=== PATIENT | female | born 1945 | race Caucasian/White ===

== ENCOUNTER → 2017-11-30 | Outpatient (CLI) | payer MEDICARE, OTHER ==
[~2017-11-30] MED LIST: CHOL10002; FURO40 PO; GLIP10; HYDACE5 PO; INSULANI; KRILL OIL500 MG PO; LORA2 PO; LOSA25; LOSHYD; Motion Sickness25 M1 PO; Norvasc2.5 MG PO; POTCHL20ER PO; PROG100; PYRI100 PO; TURMERIC500 M2 PO
[2017-11-30 11:30] LABS: Source, Urine Clean Catch
[2017-11-30 11:35] LABS: Appearance, Urine Clear (Clear); Bilirubin, Urine Neg (Neg); Blood, Urine Neg (Neg); Color, Urine Yellow (P-Yellow); Glucose Qualitative, Urine Neg (Normal); Ketones, Urine Neg (Neg); Leukocyte Esterase, Urine 1+ (Neg); Nitrite, Urine Neg (Neg); Protein, Urine Neg (Neg); Urobilinogen, Urine NORM (Normal)
[2017-11-30 11:49] LABS: Bacteria Not Seen /hpf; Red Blood Cells, Urine Not Seen /hpf (0-2); Squamous Epithelial Cells Rare /hpf (Few); White Blood Cells, Urine Rare /hpf (0-5)
== END | disposition home or self-care (01) ==
LOC: LAB EV 11:26
PROVIDERS: Nurse Practitioner Family
DX: R30.0 Dysuria (principal)
CPT/HCPCS: 81001; 87086

== ENCOUNTER 2017-12-05 15:50 | Emergency (ER) | payer MEDICARE, OTHER ==
[~2017-12-05] VITALS: Ht 160 cm; Wt 118.8 kg
[~2017-12-05 15:50] MED LIST changes: -CHOL10002; -FURO40 PO; -KRILL OIL500 MG PO; -Motion Sickness25 M1 PO; -Norvasc2.5 MG PO; -POTCHL20ER PO; -PYRI100 PO; -TURMERIC500 M2 PO
[2017-12-05] MEDS ORDERED: PYRI100 PO (16:06)
[2017-12-05] MEDS ORDERED: Norvasc2.5 MG PO (16:06)
[2017-12-05] MEDS ORDERED: KRILL OIL500 MG PO (16:07)
[2017-12-05] MEDS ORDERED: TURMERIC500 M2 PO (16:07)
[2017-12-05] MEDS ORDERED: CHOL10002 (16:07)
[2017-12-05] MEDS ORDERED: FURO40 PO (16:08)
[2017-12-05] MEDS ORDERED: POTCHL20ER PO (16:09)
[2017-12-05 17:29] LABS: BASOPHILS ABSOLUTE AUTO 0.03 K/mm3 (0.00-0.23); BASOPHILS PERCENT AUTO 0 % (0-2); EOSINOPHILS ABSOLUTE AUTO 0.13 K/mm3 (0.00-0.68); EOSINOPHILS PERCENT AUTO 2 % (0-6); Hematocrit 39.4 % (33.0-51.0); IMMATURE GRAN ABSOLUTE AUTO 0.03 K/mm3 (0.00-0.10); IMMATURE GRAN PERCENT AUTO 0 % (0-1); LYMPHOCYTES ABSOLUTE AUTO 1.94 K/mm3 (0.84-5.20); LYMPHOCYTES PERCENT AUTO 23 % (21-46); MONOCYTES ABSOLUTE AUTO 0.67 K/mm3 (0.16-1.47); MONOCYTES PERCENT AUTO 8 % (4-13); Mean Corpuscular HGB Conc 30.5 g/dL (31.5-36.5); Mean Corpuscular Volume 86 fL (80-100); Mean Platelet Volume 10.1 fL (9.1-12.4); NEUTROPHILS ABSOLUTE AUTO 5.73 K/mm3 (1.96-9.15); NEUTROPHILS PERCENT AUTO 67 % (41-73); Platelet Count 246 K/mm3 (150-400); RDW Coefficient Variation 16.8 % (11.7-14.2); Red Blood Cell Count 4.61 M/mm3 (3.80-5.20); White Blood Cell Count 8.53 K/mm3 (4.00-11.30)
[2017-12-05 17:43] LABS: Anion Gap 10 mmol/L (6-16); Blood Urea Nitrogen 23 mg/dL (8-24); Bun/Creatinine Ratio 25.8 (12.0-20.0); CO2, Blood 21 mmol/L (21-32); Calcium, Blood 8.3 mg/dL (8.5-10.1); Chloride, Blood 109 mmol/L (98-108); Creatinine, Blood 0.89 mg/dL (0.40-1.00); Glomerular Filtration Rate >60 (60-); Glucose, Blood 161 mg/dL (70-99); Potassium, Blood 4.1 mmol/L (3.5-5.5); Sodium, Blood 140 mmol/L (136-145)
[2017-12-05] MEDS ORDERED: Motion Sickness25 M1 PO (18:34)
== END 2017-12-05 18:47 | disposition home or self-care (01) ==
LOC: ER 15:50
PROVIDERS: Emergency Medicine
DX: H81.10 Benign paroxysmal vertigo, unspecified ear (principal); Z88.5 Allergy status to narcotic agent; Z79.899 Other long term (current) drug therapy; E11.9 Type 2 diabetes mellitus without complications
CPT/HCPCS: 70450; 80048; 85025; 93005; 93010; 99284

== ENCOUNTER → 2017-12-21 | Outpatient (CLI) | payer MEDICARE, OTHER ==
[~2017-12-21] MED LIST changes: +CHOL10002; +FURO40 PO; +KRILL OIL500 MG PO; +Motion Sickness25 M1 PO; +Norvasc2.5 MG PO; +POTCHL20ER PO; +PYRI100 PO; +TURMERIC500 M2 PO
== END ==
LOC: LAB EV 12:57
DX: R35.0 Frequency of micturition (principal)
CPT/HCPCS: 87086

== ENCOUNTER 2020-07-29 18:13 | Emergency (ER) | payer MEDICARE, OTHER ==
[~2020-07-29] VITALS: Ht 160 cm; Wt 127.0 kg
[~2020-07-29 18:13] MED LIST changes: -CHOL10002; +VITAMIN D31000 UNI1 PO
[2020-07-29 20:13] LABS: BASOPHILS ABSOLUTE AUTO 0.04 K/mm3 (0.00-0.23); BASOPHILS PERCENT AUTO 1 % (0-2); EOSINOPHILS PERCENT AUTO 1 % (0-6); Hematocrit 39.8 % (33.0-51.0); Hemoglobin 12.3 g/dL (11.5-16.0); IMMATURE GRAN ABSOLUTE AUTO 0.04 K/mm3 (0.00-0.10); IMMATURE GRAN PERCENT AUTO 1 % (0-1); LYMPHOCYTES ABSOLUTE AUTO 1.88 K/mm3 (0.84-5.20); LYMPHOCYTES PERCENT AUTO 26 % (21-46); MONOCYTES ABSOLUTE AUTO 0.46 K/mm3 (0.16-1.47); MONOCYTES PERCENT AUTO 6 % (4-13); Mean Corpuscular HGB 27.7 pg (26.0-34.0); Mean Corpuscular HGB Conc 30.9 g/dL (31.5-36.5); Mean Corpuscular Volume 90 fL (80-100); Mean Platelet Volume 10.2 fL (9.1-12.4); NEUTROPHILS PERCENT AUTO 65 % (41-73); Platelet Count 287 K/mm3 (150-400); RDW Coefficient Variation 15.9 % (11.7-14.2); RDW Standard Deviation 51.9 fL (35.1-46.3); Red Blood Cell Count 4.44 M/mm3 (3.80-5.20); White Blood Cell Count 7.22 K/mm3 (4.00-11.30)
[2020-07-29 20:29] LABS: Troponin I <0.015 ng/mL (0.000-0.040)
[2020-07-29 20:30] LABS: Alanine Aminotransfer (ALT/SGP 42 U/L (12-78); Albumin, Blood 3.2 g/dL (3.4-5.0); Albumin/Globulin Ratio 0.9 (0.8-1.8); Alk Phos 89 U/L (50-136); Anion Gap 9 mmol/L (6-16); Aspartate Aminotrans (AST/SGOT 39 U/L (12-37); Bilirubin, Total 0.3 mg/dL (0.1-1.0); Blood Urea Nitrogen 23 mg/dL (8-24); CO2, Blood 18 mmol/L (21-32); Calcium, Blood 8.5 mg/dL (8.5-10.1); Chloride, Blood 114 mmol/L (98-108); Creatinine, Blood 0.82 mg/dL (0.40-1.00); Globulin, Blood 3.7 g/dL (2.2-4.0); Glomerular Filtration Rate >60 (60-); Glucose, Blood 255 mg/dL (70-99); Potassium, Blood 4.3 mmol/L (3.5-5.5); Sodium, Blood 141 mmol/L (136-145); Total Protein, Blood 6.9 g/dL (6.4-8.2)
[2020-07-29] MEDS ORDERED: METO50ER PO (21:58)
[2020-07-29] MEDS ORDERED: LOSARTAN POTASS50 M1 PO (21:58)
[2020-07-29] MEDS ORDERED: MONT10T PO (21:58)
[2020-07-29] MEDS ORDERED: SPIRONOLACTONE25 MG PO (21:58)
[2020-07-29] MEDS ORDERED: AMLODIPINE BESYL5 MG PO (21:59)
[2020-07-29] MEDS ORDERED: Lasix20 MG PO (22:43)
[2020-07-29] MEDS ORDERED: MAGNESIUM OXID400 M1 PO (22:44)
[2020-07-29 23:16] LABS: International Normalized Ratio 0.96; Prothrombin Time Results 10.3 Sec (9.7-11.5)
== END 2020-07-29 22:58 | disposition home or self-care (01) ==
LOC: ER 18:13
PROVIDERS: Emergency Medicine; Nurse Practitioner Acute Care
DX: R07.9 Chest pain, unspecified (principal); R10.13 Epigastric pain; R11.0 Nausea; E11.9 Type 2 diabetes mellitus without complications; I10 Essential (primary) hypertension; Z88.5 Allergy status to narcotic agent; Z79.899 Other long term (current) drug therapy
CPT/HCPCS: 36415; 71046; 80053; 83605; 83690; 84484; 85025; 85610; 85730; 93005; 93010; 99285-25

== ENCOUNTER 2021-03-24 07:22 | Inpatient (IN) | payer MEDICARE, OTHER ==
[~2021-03-24] VITALS: Ht 160 cm; Wt 125.0 kg
[~2021-03-24 07:22] MED LIST changes: +AMLODIPINE BESYL5 MG PO; +LOSARTAN POTASS50 M1 PO; +Lasix20 MG PO; +MAGNESIUM OXID400 M1 PO; +METO50ER PO; +MONT10T PO; +SPIRONOLACTONE25 MG PO
[2021-03-24 07:59] LABS: BASOPHILS ABSOLUTE AUTO 0.04 K/mm3 (0.00-0.23); BASOPHILS PERCENT AUTO 0 % (0-2); EOSINOPHILS ABSOLUTE AUTO 0.24 K/mm3 (0.00-0.68); EOSINOPHILS PERCENT AUTO 3 % (0-6); Hematocrit 40.8 % (33.0-51.0); Hemoglobin 13.1 g/dL (11.5-16.0); IMMATURE GRAN ABSOLUTE AUTO 0.05 K/mm3 (0.00-0.10); IMMATURE GRAN PERCENT AUTO 1 % (0-1); LYMPHOCYTES ABSOLUTE AUTO 0.99 K/mm3 (0.84-5.20); LYMPHOCYTES PERCENT AUTO 10 % (21-46); MONOCYTES ABSOLUTE AUTO 0.53 K/mm3 (0.16-1.47); MONOCYTES PERCENT AUTO 6 % (4-13); Mean Corpuscular HGB 27.3 pg (26.0-34.0); Mean Corpuscular HGB Conc 32.1 g/dL (31.5-36.5); Mean Corpuscular Volume 85 fL (80-100); Mean Platelet Volume 9.8 fL (9.1-12.4); NEUTROPHILS ABSOLUTE AUTO 7.76 K/mm3 (1.96-9.15); NEUTROPHILS PERCENT AUTO 81 % (41-73); Platelet Count 232 K/mm3 (150-400); RDW Coefficient Variation 17.3 % (11.7-14.2); RDW Standard Deviation 54.3 fL (35.1-46.3); Red Blood Cell Count 4.79 M/mm3 (3.80-5.20); White Blood Cell Count 9.61 K/mm3 (4.00-11.30)
[2021-03-24 08:19] LABS: Alanine Aminotransfer (ALT/SGP 38 U/L (12-78); Albumin, Blood 3.3 g/dL (3.4-5.0); Albumin/Globulin Ratio 0.9 (0.8-1.8); Alk Phos 79 U/L (50-136); Anion Gap 6 mmol/L (6-16); Aspartate Aminotrans (AST/SGOT 25 U/L (12-37); Bilirubin, Total 0.4 mg/dL (0.1-1.0); Blood Urea Nitrogen 19 mg/dL (8-24); Bun/Creatinine Ratio 24.3 (12.0-20.0); CO2, Blood 27 mmol/L (21-32); Calcium, Blood 8.7 mg/dL (8.5-10.1); Chloride, Blood 99 mmol/L (98-108); Creatinine, Blood 0.78 mg/dL (0.40-1.00); Globulin, Blood 3.8 g/dL (2.2-4.0); Glomerular Filtration Rate >60 (60-); Glucose, Blood 210 mg/dL (70-99); Sodium, Blood 132 mmol/L (136-145); Total Protein, Blood 7.1 g/dL (6.4-8.2); Troponin I <0.015 ng/mL (0.000-0.040)
[2021-03-24] MEDS ORDERED: METOPROLOL SUCC25 MG PO (12:05)
--- NOTE | 2021-03-24 14:43 | NUR ---
Telephone report received from BASIM Jauregui. Anticipate that pt will arrive to PCU 6 shortly.
[2021-03-24] MEDS ORDERED: METO50ER PO (16:02)
[2021-03-24] MEDS ORDERED: METO25ER PO (16:04)
--- NOTE | 2021-03-24 17:06 | NUR ---
Pt arrived from ED, alert, oreinted, pleasantly conversant and without dyspnea on 3 l/min oxygen delivery via nasal cannula. She was able to walk into the bathroom unassisted except for the PCT pushing the IV pole for her. engine monitor tech reports that her rhythm is atrial fibrillation, 83-91 bpm at this time, while on the cardizem gtt at 10cc/hour. States she is having a headache, which she was given Tylenol for. Denies chest pain/dyspnea. vital signs stable. Pt states that she uses a cpap at home, and will ask her son to bring it in for her. Continuous oximetry set up as the pt has a history of sleep apnea.
[2021-03-25 03:56] LABS: BASOPHILS ABSOLUTE AUTO 0.05 K/mm3 (0.00-0.23); BASOPHILS PERCENT AUTO 1 % (0-2); EOSINOPHILS ABSOLUTE AUTO 0.34 K/mm3 (0.00-0.68); EOSINOPHILS PERCENT AUTO 5 % (0-6); Hematocrit 38.1 % (33.0-51.0); IMMATURE GRAN ABSOLUTE AUTO 0.03 K/mm3 (0.00-0.10); IMMATURE GRAN PERCENT AUTO 0 % (0-1); LYMPHOCYTES ABSOLUTE AUTO 1.74 K/mm3 (0.84-5.20); LYMPHOCYTES PERCENT AUTO 23 % (21-46); MONOCYTES PERCENT AUTO 8 % (4-13); Mean Corpuscular HGB Conc 31.5 g/dL (31.5-36.5); Mean Corpuscular Volume 86 fL (80-100); Mean Platelet Volume 10.2 fL (9.1-12.4); NEUTROPHILS ABSOLUTE AUTO 4.87 K/mm3 (1.96-9.15); NEUTROPHILS PERCENT AUTO 64 % (41-73); Platelet Count 222 K/mm3 (150-400); RDW Coefficient Variation 17.2 % (11.7-14.2); RDW Standard Deviation 54.3 fL (35.1-46.3); Red Blood Cell Count 4.44 M/mm3 (3.80-5.20); White Blood Cell Count 7.63 K/mm3 (4.00-11.30)
[2021-03-25 04:14] LABS: Anion Gap 3 mmol/L (6-16); Blood Urea Nitrogen 20 mg/dL (8-24); Bun/Creatinine Ratio 22.4 (12.0-20.0); CO2, Blood 29 mmol/L (21-32); Calcium, Blood 7.9 mg/dL (8.5-10.1); Chloride, Blood 105 mmol/L (98-108); Creatinine, Blood 0.89 mg/dL (0.40-1.00); Glomerular Filtration Rate >60 (60-); Glucose, Blood 152 mg/dL (70-99); Magnesium, Blood 1.9 mg/dL (1.6-2.4); Potassium, Blood 3.9 mmol/L (3.5-5.5); Sodium, Blood 137 mmol/L (136-145)
[2021-03-25 06:40] LABS: Phosphorus, Blood 3.5 mg/dL (2.5-4.9); Thyroid Stimulating Hormone 0.526 uIU/mL (0.360-4.800)
--- NOTE | 2021-03-25 07:53 | NUR ---
Dr. Max here at 0730 to see pt. She is still on cardizem gtt at 10 cc/10 mg/hour; atrial fibrillation by telemetry, rate 90 bpm. Still requiring oxygen at 2 l/min to keep spo2 90%. She is c/o headache, unrelieved by Tylenol. Second covid test sent to lab.
[2021-03-25 08:45] LABS: SARS-Cov-2 (COVID-19) PCR, MMC NEGATIVE (NEGATIVE)
--- NOTE | 2021-03-25 11:00 | NUR ---
cardizem gtt turned off. Heart rate 80-90, atrial fibrillation
--- NOTE | 2021-03-25 15:34 | NUR ---
PT WAS ASSISTED TO THE BATHROOM BY PATIENT FLOW PLASTIC PRODUCTION MACHINE SETTER BASIM AGUILAR. HEART RATE IS 130 DURING THE ACTIVITY, STILL ATRIAL FIBRILLATION, AND DECREASED BACK TO 88 BPM AFTER SHE IS FINISHED USING THE BATHROOM AND BACK IN BED.
--- NOTE | 2021-03-25 17:39 | NUR ---
noted heart rate has been slowly trending up over the past hour, while the pt was eating dinner in the recliner chair next to the bed. She is no longer needing oxygen, spo2 92 % on room air after being slowly weaned off of the oxygen at 2 l/min. She is having no dyspnea, and denies any chest discomfort or palpitations. Her heart rate is 100-120 at rest at this time. Evening metoprolol dose will be given at this time instead of at 2100. Blood pressure is stable.
--- NOTE | 2021-03-25 21:23 | NUR ---
THIS LN TOOKOVER PATIENT AT 1845, AO X 4, ABLE TO MAKE NEEDS KNOWN, STAND BY ASSIST WITH AMBULATION AND SET UP, CALL LIGHT WITHIN REACH, BLOOD PRESSURE ELEVATED, THROAT IS SORE, AND C/O RHINIITIS.
--- NOTE | 2021-03-26 06:38 | NUR ---
PATIENT HAS HIGH BLOOD PRESSURE THIS AM, 170/115 HR 82 ASYMPTOMATIC NO C/O OF PRESSURE, PAIN, SOB, PALPITATIONS, DIZZINESS, NAUSEA AND/OR MALAISE, WILL PASS OVER TO DAYSHIFT PATIENT HAS BEEN HAVING INCREASING BLOOD PRESSURES, STARTED BACK ON HER HOME MEDICATIONS YESTERDAY FOR PRESSURE CONTROL.
[2021-03-26 09:08] LABS: BASOPHILS ABSOLUTE AUTO 0.06 K/mm3 (0.00-0.23); BASOPHILS PERCENT AUTO 1 % (0-2); EOSINOPHILS ABSOLUTE AUTO 0.43 K/mm3 (0.00-0.68); EOSINOPHILS PERCENT AUTO 6 % (0-6); Hemoglobin 13.4 g/dL (11.5-16.0); IMMATURE GRAN ABSOLUTE AUTO 0.03 K/mm3 (0.00-0.10); IMMATURE GRAN PERCENT AUTO 0 % (0-1); LYMPHOCYTES ABSOLUTE AUTO 1.77 K/mm3 (0.84-5.20); LYMPHOCYTES PERCENT AUTO 26 % (21-46); MONOCYTES ABSOLUTE AUTO 0.52 K/mm3 (0.16-1.47); MONOCYTES PERCENT AUTO 8 % (4-13); Mean Corpuscular HGB Conc 31.2 g/dL (31.5-36.5); Mean Corpuscular Volume 87 fL (80-100); Mean Platelet Volume 10.1 fL (9.1-12.4); NEUTROPHILS ABSOLUTE AUTO 4.13 K/mm3 (1.96-9.15); NEUTROPHILS PERCENT AUTO 60 % (41-73); Platelet Count 246 K/mm3 (150-400); RDW Coefficient Variation 17.4 % (11.7-14.2); Red Blood Cell Count 4.97 M/mm3 (3.80-5.20); White Blood Cell Count 6.94 K/mm3 (4.00-11.30)
[2021-03-26 09:17] LABS: Anion Gap 5 mmol/L (6-16); Blood Urea Nitrogen 16 mg/dL (8-24); Bun/Creatinine Ratio 19.4 (12.0-20.0); CO2, Blood 27 mmol/L (21-32); Calcium, Blood 8.3 mg/dL (8.5-10.1); Chloride, Blood 104 mmol/L (98-108); Creatinine, Blood 0.82 mg/dL (0.40-1.00); Glomerular Filtration Rate >60 (60-); Glucose, Blood 280 mg/dL (70-99); Potassium, Blood 4.3 mmol/L (3.5-5.5); Sodium, Blood 136 mmol/L (136-145)
--- NOTE | 2021-03-26 18:00 | NUR ---
Update 03/26/21 1758: Per chart review with Dr. Max, pt. likely to discharge within the next 24-48 hours. Reviewed discharge plan with pt. She has the support she needs at home, family to provide transportation, no concerns or barriars. Declined to scheduled hospital F/U at this time. Would like to schedule at time of JUDITH call. Given discharge letter and advised to call triage line with any questions or concerns regarding care.
--- NOTE | 2021-03-26 18:52 | NUR ---
SHIFT NOTE PT HAS BEEN INDEPENDANT IN ROOM TO BATHROOOM. PT SITTING IN BEDSIDE CHAIR. HTN NOTED AT END OF SHIFT PT TREATED WITH NORVASC. DENIES CP OR SOB. PT HAS CONVERTED TO NSR IN THE 70s AT THE END OF THIS SHIFT. OTHERWISE NO ACUTE CHANGES NOTED
--- NOTE | 2021-03-27 05:13 | NUR ---
CUSTOMER DATA TECHNICIAN SUMMARY PT IS AXO X4 AND USES CALL [employer] PT HAS REMAINED IN NSR 70-80'S THIS SHIFT BUT HAS BEEN SB AT TIMES WHILE ASLEEP. BP WAS ELEVATED AT START OF SHIFT W SBP IN THE 160'S BUT RESOLVED OVER THE COURSE OF THE NIGHT. PT HAS DENIED ANY CP OR NAUSEA THIS SHIFT. PT AMBULATING TO BATHROOM W STEADY GAIT BUT DOES REPORT A TIGHTNESS IN HER HIPS. O2 SATS >92% ON 2L VIA NC AND THEN ON CPAP W 2L BLEED IN. PT HAS OCCASSIONAL NON-PRODUCTIVE DRY COUGH. WILL REPORT TO ONCOMING RN.
--- NOTE | 2021-03-27 12:31 | NUR ---
PT ALERT AND ORIENTED X4. ON ROOM AIR SATING AT 94-95%. DENIES SOB. DRY NONPRODUCTIVE COUGH. TELE SHOWING SINUS WITH HR 70'S. WHEN SLEEPING SINUS FERNANDO IN THE 50'S. DENIES CHEST PAIN/PRESSURE. VITAL SIGNS STABLE. PERIPHERAL PULSES STRONG. BOWEL TONES PRESENT. DENIES ISSUES WITH URINATION AND BOWEL MOVEMENTS. UP SBA FOR SAFETY TO BATHROOM. IV IN LEFT FORARM SALINE LOCKED AND FLUSHING WELL. ANTIBIOTICS INFUSED THIS AM. ANXIOUS TO GET HOME. DENIES PAIN AT THIS TIME. LIMITED RANGE OF MOTION IN LEFT SHOULDER AND RIGHT ANKLE. CALL LIGHT IN REACH. WILL CONTINUE TO MONITOR.
[2021-03-27] MEDS ORDERED: AMLO5 PO (14:26)
--- NOTE | 2021-03-27 16:07 | NUR ---
DISCHARGE: NO ACUTE CHANGES, SEE PREVIOUS NOTE. DISCHARGE INSTRUCTIONS REVIEWED AND QUESTIONS ANSWERED. IV TAKEN OUT PER PROTOCOL. PT DISCHARGING HOME, FAMILY IN TO PICK PT UP. PT LEFT UNIT VIA WHEELCHAIR WITH ALL PERSONAL BELONGINGS.
== END 2021-03-27 15:24 | disposition home or self-care (01) | DRG 871 ==
LOC: ER 07:22 → ERHOLD 07:23 → PCU 15:11
PROVIDERS: Emergency Medicine; ADMIT Internal Medicine
DX: A41.9 Sepsis, unspecified organism (principal); J18.9 Pneumonia, unspecified organism; Z68.42 Body mass index [BMI] 45.0-49.9, adult; E87.2 Acidosis; Z20.822 Contact with and (suspected) exposure to COVID-19; Z90.5 Acquired absence of kidney; Z98.84 Bariatric surgery status; I48.91 Unspecified atrial fibrillation; K21.9 Gastro-esophageal reflux disease without esophagitis; I10 Essential (primary) hypertension; G47.33 Obstructive sleep apnea (adult) (pediatric); E66.01 Morbid (severe) obesity due to excess calories
CPT/HCPCS: 36415; 71045; 80048; 80053; 82947; 83605; 83735; 83880; 84100; 84145; 84443; 84484; 85025; 87040; 93005; 93010; 94762; 96365; 96366; 96367; 96375; 96376; 97162; 97530; 99285-25; A9270; J0456; J0696; J1650; J2405; J7030; J7050; U0004

== ENCOUNTER → 2021-08-23 | Outpatient (CLI) | payer MEDICARE, OTHER ==
[~2021-08-23] MED LIST changes: +AMLO5 PO; +METO25ER PO; +METOPROLOL SUCC25 MG PO
[2021-08-23 11:40] LABS: BASOPHILS ABSOLUTE AUTO 0.03 K/mm3 (0.00-0.23); BASOPHILS PERCENT AUTO 0 % (0-2); EOSINOPHILS ABSOLUTE AUTO 0.12 K/mm3 (0.00-0.68); EOSINOPHILS PERCENT AUTO 1 % (0-6); Hematocrit 45.6 % (33.0-51.0); Hemoglobin 14.8 g/dL (11.5-16.0); IMMATURE GRAN ABSOLUTE AUTO 0.04 K/mm3 (0.00-0.10); IMMATURE GRAN PERCENT AUTO 0 % (0-1); LYMPHOCYTES ABSOLUTE AUTO 1.82 K/mm3 (0.84-5.20); LYMPHOCYTES PERCENT AUTO 17 % (21-46); MONOCYTES ABSOLUTE AUTO 0.56 K/mm3 (0.16-1.47); MONOCYTES PERCENT AUTO 5 % (4-13); Mean Corpuscular HGB 28.4 pg (26.0-34.0); Mean Corpuscular HGB Conc 32.5 g/dL (31.5-36.5); Mean Corpuscular Volume 88 fL (80-100); Mean Platelet Volume 10.4 fL (9.1-12.4); NEUTROPHILS ABSOLUTE AUTO 8.19 K/mm3 (1.96-9.15); NEUTROPHILS PERCENT AUTO 76 % (41-73); Platelet Count 248 K/mm3 (150-400); RDW Coefficient Variation 17.8 % (11.7-14.2); RDW Standard Deviation 56.7 fL (35.1-46.3); Red Blood Cell Count 5.21 M/mm3 (3.80-5.20); White Blood Cell Count 10.76 K/mm3 (4.00-11.30)
[2021-08-23 11:59] LABS: Albumin, Blood 3.3 g/dL (3.4-5.0); Albumin/Globulin Ratio 0.9 (0.8-1.8); Bilirubin, Total 0.4 mg/dL (0.1-1.0); Bun/Creatinine Ratio 18.8 (12.0-20.0); Calcium, Blood 8.4 mg/dL (8.5-10.1); Creatinine, Blood 1.01 mg/dL (0.40-1.00); Globulin, Blood 3.5 g/dL (2.2-4.0); Potassium, Blood 4.4 mmol/L (3.5-5.5); Thyroid Stimulating Hormone 0.998 uIU/mL (0.360-4.800); Total Protein, Blood 6.8 g/dL (6.4-8.2)
== END | disposition home or self-care (01) ==
LOC: LAB SHORT 11:30 → LAB 11:30
PROVIDERS: Physician Assistant
DX: I48.91 Unspecified atrial fibrillation (principal); R53.83 Other fatigue
CPT/HCPCS: 80053; 83735; 83880; 84443; 85025

== ENCOUNTER 2022-05-11 08:24 | Inpatient (IN) | payer MEDICARE ==
[~2022-05-11] VITALS: Ht 160 cm; Wt 122.6 kg
[2022-05-11 10:05] LABS: BASOPHILS ABSOLUTE AUTO 0.03 K/mm3 (0.00-0.23); BASOPHILS PERCENT AUTO 0 % (0-2); EOSINOPHILS ABSOLUTE AUTO 0.06 K/mm3 (0.00-0.68); EOSINOPHILS PERCENT AUTO 1 % (0-6); Hematocrit 43.3 % (33.0-51.0); Hemoglobin 14.5 g/dL (11.5-16.0); IMMATURE GRAN ABSOLUTE AUTO 0.05 K/mm3 (0.00-0.10); IMMATURE GRAN PERCENT AUTO 1 % (0-1); LYMPHOCYTES ABSOLUTE AUTO 1.42 K/mm3 (0.84-5.20); LYMPHOCYTES PERCENT AUTO 14 % (21-46); MONOCYTES ABSOLUTE AUTO 0.55 K/mm3 (0.16-1.47); MONOCYTES PERCENT AUTO 5 % (4-13); Mean Corpuscular HGB 30.9 pg (26.0-34.0); Mean Corpuscular HGB Conc 33.5 g/dL (31.5-36.5); Mean Corpuscular Volume 92 fL (80-100); NEUTROPHILS PERCENT AUTO 79 % (41-73); Platelet Count 231 K/mm3 (150-400); RDW Coefficient Variation 13.7 % (11.7-14.2); RDW Standard Deviation 46.4 fL (35.1-46.3); Red Blood Cell Count 4.69 M/mm3 (3.80-5.20); White Blood Cell Count 10.11 K/mm3 (4.00-11.30)
[2022-05-11 10:28] LABS: Albumin, Blood 3.3 g/dL (3.4-5.0); Albumin/Globulin Ratio 0.9 (0.8-1.8); Bilirubin, Total 0.4 mg/dL (0.1-1.0); Bun/Creatinine Ratio 23.1 (12.0-20.0); Calcium, Blood 8.5 mg/dL (8.5-10.1); Creatinine, Blood 0.65 mg/dL (0.40-1.00); Globulin, Blood 3.6 g/dL (2.2-4.0); Potassium, Blood 4.6 mmol/L (3.5-5.5); Total Protein, Blood 6.9 g/dL (6.4-8.2)
--- NOTE | 2022-05-11 20:40 | NUR ---
ASSUMED CARE. AOX3, ABLE TO MAKE NEEDS KNOWN. LS CLEAR, RESP EVEN AND UNLABORED, SATS >95% ON RA. AFIB W/ RVR, RATE AT REST 90'S, SITTING UP TO SIDE OF BED RATE INCREASSED TO 110'S. SHE GOT LIGHTHEADED JUST MOVING THEN HEADACHE CAME AFTERWARDS. SHE IS CONCERNED THAT SHE WILL NOT HAVE HER SURGERY FOR HER RIGHT SHOULDER NEXT WEEK DUE TO THIS. INFORMED HER THE DRILLING AND PRODUCTION SUPERINTENDENT WILL TALK WITH HER ABOUT IT TOMORROW. WHEN GETTING UP TO BATHROOM SHE DENIED CHEST PAIN. CARDIZEM GTT 10MCQ INFUSING. RATE INCREASED TO 120'S. MILD EDEMA NOTED TO BLE. DENIED ANY OTHER ISSUES OR CONCERNS. WANTS TYLENOL AND GABAPENTIN FOR BED. ADMISSION COMPLETED. DENIES ANY OTHER NEEDS AT THIS TIME. CALL LIGHT IS IN REACH.
[2022-05-11] MEDS ORDERED: GABA100 PO (20:42)
[2022-05-11] MEDS ORDERED: YAZ 28 TABLET1 EAC1 (20:43)
--- NOTE | 2022-05-11 22:15 | NUR ---
CARDIOLOGY CONSULT CALLED, ORDER UPDATED. SPOKE TO HOSPITALIST AND GOT ORDER FOR GABAPENTIN PER PATIENT REQUEST.
[2022-05-12 04:28] LABS: BASOPHILS ABSOLUTE AUTO 0.02 K/mm3 (0.00-0.23); BASOPHILS PERCENT AUTO 0 % (0-2); EOSINOPHILS ABSOLUTE AUTO 0.09 K/mm3 (0.00-0.68); EOSINOPHILS PERCENT AUTO 1 % (0-6); Hematocrit 43.7 % (33.0-51.0); Hemoglobin 14.5 g/dL (11.5-16.0); IMMATURE GRAN ABSOLUTE AUTO 0.02 K/mm3 (0.00-0.10); IMMATURE GRAN PERCENT AUTO 0 % (0-1); LYMPHOCYTES ABSOLUTE AUTO 1.73 K/mm3 (0.84-5.20); LYMPHOCYTES PERCENT AUTO 23 % (21-46); MONOCYTES ABSOLUTE AUTO 0.64 K/mm3 (0.16-1.47); MONOCYTES PERCENT AUTO 9 % (4-13); Mean Corpuscular HGB 30.6 pg (26.0-34.0); Mean Corpuscular HGB Conc 33.2 g/dL (31.5-36.5); Mean Corpuscular Volume 92 fL (80-100); Mean Platelet Volume 9.8 fL (9.1-12.4); NEUTROPHILS ABSOLUTE AUTO 4.88 K/mm3 (1.96-9.15); NEUTROPHILS PERCENT AUTO 66 % (41-73); Platelet Count 240 K/mm3 (150-400); RDW Coefficient Variation 13.6 % (11.7-14.2); Red Blood Cell Count 4.74 M/mm3 (3.80-5.20); White Blood Cell Count 7.38 K/mm3 (4.00-11.30)
[2022-05-12 04:47] LABS: Albumin, Blood 3.1 g/dL (3.4-5.0); Albumin/Globulin Ratio 0.9 (0.8-1.8); Bilirubin, Total 0.5 mg/dL (0.1-1.0); Bun/Creatinine Ratio 24.4 (12.0-20.0); Calcium, Blood 8.6 mg/dL (8.5-10.1); Creatinine, Blood 0.78 mg/dL (0.40-1.00); Globulin, Blood 3.3 g/dL (2.2-4.0); Total Protein, Blood 6.4 g/dL (6.4-8.2)
--- NOTE | 2022-05-12 05:49 | NUR ---
SHIFT SUMMARY: AOX3, ABLE TO MAKE NEEDS KNOWN, USES CALL LIGHT APPROPRIATLY. CANE AND SBA TO BATHROOM WHEN NEEDED. LEELA FARMER HAS BEEN INFUSING T/O NOC AT 10MCQ/HR FOR AFIB W/RVR RATE HAS MAINTAINED IN 90'S TO LOW 100'S WHEN AT REST, WHEN SHE GETS UP TO THE BATHROOM SHE HAS INCREASED TO HIGH 120'S. SHE DID GET LIGHTHEADED WHEN GETTING UP. CARDIOLOGY CONSULT WAS CALLED INTO DR. MARIE LAST NIGHT. NO CHEST PAIN HAS OCCURRED, MILD EDEMA TO BLE. BLOOD PRESSURE HAS BEEN STABLE, SOFT AT TIMES. REST OF VS WNL. CPAP WAS ORDERED AND USED PER PATIENT REQUEST. NO OTHER CHANGES TO NOTE. WILL REPORT TO SHAKIRA STALLWORTH.
--- NOTE | 2022-05-12 18:33 | NUR ---
NO ACUTE EVENTS T/O THE SHIFT, PT HAS HAD NO COMPLAINTS. PO CARDIZEM STARTED AND CARDIZEM GTT WEANED OFF. HR 90s AFIB AT THIS TIME. WILL CONTINUE TO MONITOR AND GIVE REPORT TO NOC SHIFT RN, CALL LIGHT IN REACH.
--- NOTE | 2022-05-13 06:53 | NUR ---
NO ACUTE EVENTS OVERNIGHT. HEART RATE PRIMARILY IN THE 90S TO LOW 100S AT REST, JUMPS INTO 120S-13S WITH AMBULATION TO/FROM BATHROOM. EDUCATION PROVDIED REGARDING NEW MEDICATION CARDIZEM.
[2022-05-13] MEDS ORDERED: Vitamin D1000 UNI1 PO (17:28)
[2022-05-13] MEDS ORDERED: DILT120 PO (17:29)
--- NOTE | 2022-05-13 18:57 | NUR ---
DISCHARGE UPDATE DISCHARGE PACKET GONE OVER WITH PT AT 1750. PT DISCHARGED AT 1755 VIA WHEELCHAIR AND ON RA. PT ABLE TO TRANSFER SELF TO AND FROM WHEELCHAIR ON HER OWN, TOLERATED WELL. PT BELONGINGS IN BAGS AND WITH PT ALONG WITH DISCHARGE PACKET.
== END 2022-05-13 17:55 | disposition home or self-care (01) | DRG 310 ==
LOC: ER 08:24 → PCU 08:25 → ERHOLD 08:25 → PCU 12:57 → ERHOLD 12:57 → ER 12:57 → PCU 18:59 → ERHOLD 18:59 → PCU 19:00
PROVIDERS: Emergency Medicine; ADMIT Family Medicine
DX: I48.0 Paroxysmal atrial fibrillation (principal); I48.20 Chronic atrial fibrillation, unspecified; I10 Essential (primary) hypertension; E78.5 Hyperlipidemia, unspecified; G47.33 Obstructive sleep apnea (adult) (pediatric); Z96.652 Presence of left artificial knee joint; M12.811 Other specific arthropathies, not elsewhere classified, right shoulder; M54.30 Sciatica, unspecified side; K21.9 Gastro-esophageal reflux disease without esophagitis; E11.65 Type 2 diabetes mellitus with hyperglycemia; Z98.1 Arthrodesis status; Z90.49 Acquired absence of other specified parts of digestive tract; Z98.51 Tubal ligation status; Z90.5 Acquired absence of kidney; Z98.84 Bariatric surgery status; Z98.890 Other specified postprocedural states; Z88.6 Allergy status to analgesic agent; Z79.899 Other long term (current) drug therapy
CPT/HCPCS: 36415; 71045; 80053; 82947; 83036; 83735; 84443; 85025; 93005; 93010; 94660; 94762; 96365; 96374; 96375; 96376; 99285-25; A9270; G0378; J1815

== ENCOUNTER 2022-08-29 01:28 | Inpatient (IN) | payer MEDICARE ==
[~2022-08-29] VITALS: Ht 160 cm; Wt 126.9 kg
[~2022-08-29 01:28] MED LIST changes: +DILT120ERA PO; +GABA100 PO; +Vitamin D1000 UNI1 PO; +YAZ 28 TABLET1 EAC1
[2022-08-29 01:55] LABS: Source, Urine Clean Catch
[2022-08-29 01:58] LABS: BASOPHILS ABSOLUTE AUTO 0.04 K/mm3 (0.00-0.23); BASOPHILS PERCENT AUTO 0 % (0-2); EOSINOPHILS ABSOLUTE AUTO 0.11 K/mm3 (0.00-0.68); EOSINOPHILS PERCENT AUTO 1 % (0-6); Hematocrit 42.3 % (33.0-51.0); Hemoglobin 13.9 g/dL (11.5-16.0); IMMATURE GRAN ABSOLUTE AUTO 0.06 K/mm3 (0.00-0.10); IMMATURE GRAN PERCENT AUTO 1 % (0-1); LYMPHOCYTES ABSOLUTE AUTO 1.59 K/mm3 (0.84-5.20); LYMPHOCYTES PERCENT AUTO 15 % (21-46); MONOCYTES PERCENT AUTO 6 % (4-13); Mean Corpuscular HGB 30.2 pg (26.0-34.0); Mean Corpuscular HGB Conc 32.9 g/dL (31.5-36.5); Mean Corpuscular Volume 92 fL (80-100); Mean Platelet Volume 9.6 fL (9.1-12.4); NEUTROPHILS ABSOLUTE AUTO 8.05 K/mm3 (1.96-9.15); NEUTROPHILS PERCENT AUTO 77 % (41-73); Platelet Count 275 K/mm3 (150-400); RDW Coefficient Variation 14.2 % (11.7-14.2); RDW Standard Deviation 47.8 fL (35.1-46.3); Red Blood Cell Count 4.61 M/mm3 (3.80-5.20); White Blood Cell Count 10.45 K/mm3 (4.00-11.30)
[2022-08-29 01:59] LABS: Bilirubin, Urine Neg (Neg); Blood, Urine 1+ (Neg); Glucose Qualitative, Urine Neg (Neg); Ketones, Urine Neg (Neg); Leukocyte Esterase, Urine 1+ (Neg); Nitrite, Urine Neg (Neg); Protein, Urine 3+ (Neg); Urobilinogen, Urine NORM (Normal)
[2022-08-29 02:18] LABS: Albumin, Blood 3.2 g/dL (3.4-5.0); Albumin/Globulin Ratio 0.8 (0.8-1.8); Bilirubin, Total 0.3 mg/dL (0.1-1.0); Bun/Creatinine Ratio 28.7 (12.0-20.0); Calcium, Blood 8.6 mg/dL (8.5-10.1); Creatinine, Blood 0.84 mg/dL (0.40-1.00); Globulin, Blood 4.1 g/dL (2.2-4.0); Potassium, Blood 4.3 mmol/L (3.5-5.5); Total Protein, Blood 7.3 g/dL (6.4-8.2)
[2022-08-29 02:23] LABS: Appearance, Urine Clear (Clear); Color, Urine Pale Yellow (P-Yellow)
[2022-08-29 02:28] LABS: Bacteria Few /hpf; Red Blood Cells, Urine 0-2 /hpf (0-2); Squamous Epithelial Cells Few /hpf (Few)
[2022-08-29] MEDS ORDERED: ELIQUIS5 M2 PO (08:00)
[2022-08-29] MEDS ORDERED: CARTIA XT120 M1 PO (08:01)
[2022-08-29] MEDS ORDERED: LASIX40 MG PO (08:02)
[2022-08-29] MEDS ORDERED: GABA100 PO (08:04)
[2022-08-29] MEDS ORDERED: LOSARTAN POTAS100 M1 PO (08:05)
[2022-08-29] MEDS ORDERED: MAGNESIUM OXID400 M1 PO (08:06)
[2022-08-29] MEDS ORDERED: METO50ER PO (08:07)
[2022-08-30 05:07] LABS: BASOPHILS ABSOLUTE AUTO 0.03 K/mm3 (0.00-0.23); BASOPHILS PERCENT AUTO 0 % (0-2); EOSINOPHILS ABSOLUTE AUTO 0.16 K/mm3 (0.00-0.68); EOSINOPHILS PERCENT AUTO 2 % (0-6); Hematocrit 43.3 % (33.0-51.0); Hemoglobin 13.6 g/dL (11.5-16.0); IMMATURE GRAN ABSOLUTE AUTO 0.02 K/mm3 (0.00-0.10); IMMATURE GRAN PERCENT AUTO 0 % (0-1); LYMPHOCYTES ABSOLUTE AUTO 2.07 K/mm3 (0.84-5.20); LYMPHOCYTES PERCENT AUTO 29 % (21-46); MONOCYTES ABSOLUTE AUTO 0.52 K/mm3 (0.16-1.47); MONOCYTES PERCENT AUTO 7 % (4-13); Mean Corpuscular HGB 29.6 pg (26.0-34.0); Mean Corpuscular HGB Conc 31.4 g/dL (31.5-36.5); Mean Corpuscular Volume 94 fL (80-100); Mean Platelet Volume 9.9 fL (9.1-12.4); NEUTROPHILS PERCENT AUTO 61 % (41-73); Platelet Count 257 K/mm3 (150-400); RDW Coefficient Variation 13.9 % (11.7-14.2); RDW Standard Deviation 48.2 fL (35.1-46.3); Red Blood Cell Count 4.59 M/mm3 (3.80-5.20)
[2022-08-30 06:00] LABS: Albumin, Blood 2.6 g/dL (3.4-5.0); Albumin/Globulin Ratio 0.7 (0.8-1.8); Bilirubin, Total 0.5 mg/dL (0.1-1.0); Bun/Creatinine Ratio 22.8 (12.0-20.0); Calcium, Blood 8.4 mg/dL (8.5-10.1); Creatinine, Blood 0.97 mg/dL (0.40-1.00); Globulin, Blood 3.5 g/dL (2.2-4.0); Potassium, Blood 4.5 mmol/L (3.5-5.5); Total Protein, Blood 6.1 g/dL (6.4-8.2)
[2022-08-30 09:34] LABS: Influenza A, PCR NEGATIVE (NEGATIVE); Influenza B, PCR NEGATIVE (NEGATIVE); Resp Syncytial Virus, PCR NEGATIVE (NEGATIVE); SARS-Cov-2 (COVID-19) PCR, MMC NEGATIVE (NEGATIVE)
[2022-08-31] MEDS ORDERED: BACTRIM DS TAB1 EAC6 PO (09:28)
== END 2022-08-31 10:26 | disposition home or self-care (01) | DRG 309 ==
LOC: ER 01:28 → PCU 01:29
PROVIDERS: Emergency Medicine; ADMIT Internal Medicine
DX: I48.0 Paroxysmal atrial fibrillation (principal); N39.0 Urinary tract infection, site not specified; E11.9 Type 2 diabetes mellitus without complications; I10 Essential (primary) hypertension; G47.33 Obstructive sleep apnea (adult) (pediatric); M54.30 Sciatica, unspecified side; R09.02 Hypoxemia; Z20.822 Contact with and (suspected) exposure to COVID-19; B95.2 Enterococcus as the cause of diseases classified elsewhere; Z96.659 Presence of unspecified artificial knee joint; Z98.51 Tubal ligation status; Z98.84 Bariatric surgery status; Z88.5 Allergy status to narcotic agent; Z98.890 Other specified postprocedural states; Z90.5 Acquired absence of kidney; Z90.49 Acquired absence of other specified parts of digestive tract; Z79.899 Other long term (current) drug therapy; Z99.81 Dependence on supplemental oxygen
CPT/HCPCS: 0241U; 36415; 70450; 71045; 80053; 81001; 82947; 83690; 83735; 83880; 84484; 85025; 87077; 87086; 87186; 93005; 93010; 96375; 97110; 97162; A9270; G0378; J0696; J2405; J3010; J7030

== ENCOUNTER → 2022-09-20 | Outpatient (CLI) | payer MEDICARE ==
[~2022-09-20] MED LIST changes: +BACTRIM DS TAB1 EAC6 PO; +CARTIA XT120 M1 PO; +ELIQUIS5 M2 PO; +LASIX40 MG PO; +LOSARTAN POTAS100 M1 PO
[2022-09-20 08:34] LABS: BASOPHILS ABSOLUTE AUTO 0.05 K/mm3 (0.00-0.23); BASOPHILS PERCENT AUTO 1 % (0-2); EOSINOPHILS ABSOLUTE AUTO 0.09 K/mm3 (0.00-0.68); EOSINOPHILS PERCENT AUTO 1 % (0-6); Hematocrit 42.8 % (33.0-51.0); Hemoglobin 13.9 g/dL (11.5-16.0); IMMATURE GRAN ABSOLUTE AUTO 0.05 K/mm3 (0.00-0.10); IMMATURE GRAN PERCENT AUTO 1 % (0-1); LYMPHOCYTES ABSOLUTE AUTO 1.68 K/mm3 (0.84-5.20); LYMPHOCYTES PERCENT AUTO 18 % (21-46); MONOCYTES ABSOLUTE AUTO 0.37 K/mm3 (0.16-1.47); MONOCYTES PERCENT AUTO 4 % (4-13); Mean Corpuscular HGB 29.9 pg (26.0-34.0); Mean Corpuscular HGB Conc 32.5 g/dL (31.5-36.5); Mean Corpuscular Volume 92 fL (80-100); Mean Platelet Volume 9.5 fL (9.1-12.4); NEUTROPHILS ABSOLUTE AUTO 6.91 K/mm3 (1.96-9.15); NEUTROPHILS PERCENT AUTO 76 % (41-73); Platelet Count 250 K/mm3 (150-400); RDW Coefficient Variation 14.4 % (11.7-14.2); RDW Standard Deviation 48.4 fL (35.1-46.3); Red Blood Cell Count 4.65 M/mm3 (3.80-5.20); White Blood Cell Count 9.15 K/mm3 (4.00-11.30)
[2022-09-20 08:43] LABS: Albumin, Blood 3.3 g/dL (3.4-5.0); Albumin/Globulin Ratio 0.8 (0.8-1.8); Bilirubin, Total 0.3 mg/dL (0.1-1.0); Bun/Creatinine Ratio 16.3 (12.0-20.0); Calcium, Blood 8.4 mg/dL (8.5-10.1); Creatinine, Blood 0.92 mg/dL (0.40-1.00); Globulin, Blood 3.9 g/dL (2.2-4.0); Potassium, Blood 4.5 mmol/L (3.5-5.5); Total Protein, Blood 7.2 g/dL (6.4-8.2)
== END | disposition home or self-care (01) ==
LOC: LAB SHORT 08:29 → LAB 08:29
PROVIDERS: Physician Assistant
DX: I48.91 Unspecified atrial fibrillation (principal)
CPT/HCPCS: 80053; 85025

== ENCOUNTER 2025-09-15 08:36 | Day surgery (SDC) | payer MEDICARE ==
[~2025-09-15] VITALS: Ht 160 cm; Wt 110.1 kg
[~2025-09-15 08:36] MED LIST changes: +FARXIGA10 MG PO; +NS 500 ML IV ONE; +Phentermine HCl15 MG PO
[2025-09-15] MEDS ORDERED: CeFAZolin Sodium 2,000 MG VIAL ONE (09:07)
[2025-09-15] MEDS ORDERED: METHYL B-12500 MCG (09:15)
[2025-09-15] MEDS ORDERED: TRULICITY1.5 MG/0.1 (09:15)
[2025-09-15] MEDS ORDERED: DILT180 PO (09:16)
[2025-09-15] MEDS ORDERED: FURO40 (09:17)
[2025-09-15] MEDS ORDERED: POTA10T (09:17)
[2025-09-15] MEDS ORDERED: NS 500 ML IV ONE (09:30)
[2025-09-15] MEDS ORDERED: Lidocaine HCl 2% 10 ML SDA ONE (10:02)
[2025-09-15] MEDS ORDERED: FentaNYL Citrate 50 MCG/ML 2 ML Injection ONE (10:09)
[2025-09-15 10:36] VITALS: BP 136/86
== END 2025-09-15 11:22 | disposition home or self-care (01) ==
LOC: ORSCSDS 08:36
PROVIDERS: Orthopaedic Surgery
PROC: 01N50ZZ Release Median Nerve, Open Approach (ICD-10-PCS; principal; 2025-09-15 10:00)
PROC: 0KN90ZZ Release Right Lower Arm and Wrist Muscle, Open Approach (ICD-10-PCS; principal; 2025-09-15 10:00)
PROC: 0KB90ZX Excision of Right Lower Arm and Wrist Muscle, Open Approach, Diagnostic (ICD-10-PCS; principal; 2025-09-15 10:00)
DX: G56.01 Carpal tunnel syndrome, right upper limb (principal); E11.9 Type 2 diabetes mellitus without complications; I48.91 Unspecified atrial fibrillation; I10 Essential (primary) hypertension; E78.5 Hyperlipidemia, unspecified; G47.33 Obstructive sleep apnea (adult) (pediatric); K21.9 Gastro-esophageal reflux disease without esophagitis; Z68.41 Body mass index [BMI] 40.0-44.9, adult; Z79.01 Long term (current) use of anticoagulants; Z79.85 Long-term (current) use of injectable non-insulin antidiabetic drugs; Z79.899 Other long term (current) drug therapy
CPT/HCPCS: 82947; 88304; 88313; J0690; J2003; J2704; J3010; J7040